=== PATIENT | male | born 1990 | race Caucasian/White ===

== ENCOUNTER 2020-09-29 18:09 | Emergency (ER) | payer SELFPAY ==
[~2020-09-29] VITALS: Ht 177.8 cm; Wt 67.1 kg
[2020-09-29] MEDS ORDERED: NALOXONE HCL 0.4 MG/ML AMPUL ONE (18:37)
--- NOTE | 2020-09-29 18:44 | NUR ---
Patient does not wish to proceed with medical care recommended by Dr. Alonso Gonzalez). Patient given information related to possible complications, up to and including , which could occur as a result of leaving the hospital at this time. Patient verbalizes understanding of risks involved due to leaving against medical advice. Patient has signed AMA form. pt walks in steady gait. pt took all belongings.
--- NOTE | 2020-09-29 18:44 | NUR ---
pt awake, axo x4, requesting to leave, er md at bedside.
[2020-09-29] MEDS ORDERED: NALOXONE HCL 0.4 MG/ML AMPUL IV ONE (18:45)
[2020-09-29 18:48] VITALS: BP 121/77
[2020-09-29] MEDS ORDERED: NALO4SPR NS (23:18)
== END 2020-09-29 18:50 | disposition left against medical advice (07) ==
LOC: ER 18:13
DX: T40.1X1A Poisoning by heroin, accidental (unintentional), initial encounter (principal); R40.20 Unspecified coma; F11.10 Opioid abuse, uncomplicated; Y92.414 Local residential or business street as the place of occurrence of the external cause
CPT/HCPCS: 96374; 99284; J2310; 93005; A4663; J7030

== ENCOUNTER 2020-09-29 19:49 | Emergency (ER) | payer SELFPAY ==
[~2020-09-29] VITALS: Ht 177.8 cm; Wt 77.1 kg
--- NOTE | 2020-09-29 20:00 | NUR ---
Patient was found by hospital's secruity cat unconsious in front of paking lot of hospital class room with glass pipe, tin foil and investigator internal revenue next to him. Patient waken up and assisted to [facility] and taken to room 3 in the ER.
[2020-09-29 20:26] LABS: HEMATOCRIT 38.9 % (36.7-47.1); MEAN CORPUSCULAR HEMOGLOBIN 28.7 uug (23.8-33.4); MEAN CORPUSCULAR VOLUME 83.2 fL (73.0-96.2); PLATELET COUNT (AUTO) 277 K/uL (152-348)
[2020-09-29 20:33] LABS: CARBON DIOXIDE 28 mmol/L (21-32); CHLORIDE 108 mmol/L (98-107); CREATININE 0.8 mg/dL (0.6-1.3); GLUCOSE 103 mg/dL (74-106); POTASSIUM 3.7 mmol/L (3.5-5.1); UREA NITROGEN, BLOOD 21 mg/dL (7-18)
[2020-09-29 20:34] LABS: ETHANOL < 3 MG/DL (0-0)
[2020-09-29 20:39] LABS: ALANINE AMINOTRANSFERASE 25 U/L (16-63); ALKALINE PHOSPHATASE 71 U/L (50-136); ASPARTATE AMINOTRANSFERASE 16 U/L (15-37); BILIRUBIN,DIRECT 0.1 mg/dL (0.0-0.2); BILIRUBIN,TOTAL 0.4 mg/dL (0.2-1.0)
[2020-09-29] MEDS ORDERED: NALO4SPR NS (23:18)
--- NOTE | 2020-09-29 23:20 | NUR ---
Patient went done to ct scan via diann, woke up and states to data center solutions architect "I want to leave, I don't want to do any more procedure." Patient was brought back to room 3.
--- NOTE | 2020-09-30 00:05 | NUR ---
While in the room patient became angry stating "were are my drugs." Patient refused to sign ACI and AMA form. Patient walked out of ER screaming.
== END 2020-09-30 00:20 | disposition left against medical advice (07) ==
LOC: ER 19:51
DX: T40.1X1A Poisoning by heroin, accidental (unintentional), initial encounter (principal); R40.20 Unspecified coma; F11.10 Opioid abuse, uncomplicated; Y92.89 Other specified places as the place of occurrence of the external cause
CPT/HCPCS: 36415; 85025; A4663; G0480